=== PATIENT | male | born 1945 ===

== ENCOUNTER 2016-10-09 07:44 | Day surgery (SDC) | payer BC ==
[2016-10-06 10:45] VITALS: BMI 28.8
[2016-10-09] MEDS ORDERED: Propofol 10 mg/ml Inj (20 ML) ONE (10:27)
[2016-10-09 11:03] VITALS: TEMP 97.8
[2016-10-09 11:13] VITALS: O2SAT 98
[2016-10-09 11:34] VITALS: BP 137/70; PULSE 53; RESP 15
== END 2016-10-09 11:46 | disposition home or self-care (01) ==
LOC: C.ENDO 07:44
PROVIDERS: ATTEND Internal Medicine Gastroenterology
DX: B37.81 Candidal esophagitis (principal); K44.9 Diaphragmatic hernia without obstruction or gangrene; K31.7 Polyp of stomach and duodenum
CPT/HCPCS: 43239; 88104; 88305; J2001; J2704; J3010